=== PATIENT | male | born 1985 | race Caucasian/White ===

== ENCOUNTER 2017-06-17 21:07 | Inpatient (IN) | payer SELFPAY ==
[~2017-06-17] VITALS: Ht 177.8 cm; Wt 106.4 kg
[2017-06-17] MEDS ORDERED: LORazepam 2 MG/ML VIAL IVP ONE (21:15)
[2017-06-17] MEDS ORDERED: SODIUM CHLORIDE 0.9% 1,000 ML IV ONE ×2 (21:15→22:45)
[2017-06-17] MEDS ORDERED: PERTUSS(ACELL),DIPH,TET VAC/PF 0.5 ML VIAL IM ONE (21:30)
[2017-06-17 21:45] LABS: HEMOGLOBIN 15.6 g/dL (13.5-17.5); MEAN CORPUSCULAR HEMOGLOBIN 29.4 pg (26.0-34.0); MEAN CORPUSCULAR HGB CONC 33.1 G/dL (31.0-37.0); MEAN CORPUSCULAR VOLUME 89 fL (80-100); PLATELET COUNT (AUTO) 492 K/uL (150-450); RED BLOOD CELL COUNT(AUTO) 5.29 MIL/uL (4.50-5.90)
[2017-06-17 22:16] LABS: SALICYLATE 2.2 mg/dL (2.8-20.0)
[2017-06-17 22:20] LABS: BAND NEUTROPHILS % (MANUAL) 4 % (0-5); BASOPHILS % (MANUAL) 1 % (0-2); LYMPHOCYTES % (MANUAL) 28 % (22-44); MONOCYTES % (MANUAL) 7 % (2-9); SEGMENTED NEUTROPHILS % 60 % (40-70)
[2017-06-17 22:32] LABS: ALANINE AMINOTRANSFERASE 42 U/L (12-78); ALBUMIN 4.8 g/dL (3.4-5.0); ALKALINE PHOSPHATASE 92 U/L (46-116); ANION GAP 25 mmol/L (8-16); ASPARTATE AMINOTRANSFERASE 41 U/L (15-37); BILIRUBIN,TOTAL 0.3 mg/dL (0.1-1.0); CALCIUM, TOTAL 9.5 mg/dL (8.8-10.5); CARBON DIOXIDE 16 mmol/L (22-29); CHLORIDE 106 mmol/L (98-107); CREATINE KINASE MB 3.4 ng/mL (0-5); CREATINE KINASE, TOTAL 543 U/L (39-308); CREATININE 2.05 mg/dL (0.60-1.30); GLOMERULAR FILTR. RATE CALC 28 mL/min (>60); POTASSIUM 4.9 mmol/L (3.5-5.1); SODIUM SERUM 147 mmol/L (136-145); UREA NITROGEN, BLOOD 14 mg/dL (7-18)
[2017-06-17 22:35] LABS: GLUCOSE,RANDOM 48 mg/dL (70-110)
[2017-06-17 22:36] LABS: ACETAMINOPHEN < 2 mcg/mL (10-30)
[2017-06-17] MEDS ORDERED: DEXTROSE 50%-WATER 25 GM/50 ML SYRINGE IVP ONE (22:45)
[2017-06-17] MEDS ORDERED: CefTRIAXone SODIUM 1 GM in DEXTROSE 5%-WATER 10 ML IV ONE ×4 (23:00)
[2017-06-17] MEDS ORDERED: MIDAZOLAM HCL 2 MG/2 ML VIAL IVP ONE (23:00)
[2017-06-17 23:12] LABS: GLUCOSE,POINT OF CARE 196 MG/DL (70-110)
[2017-06-18] MEDS ORDERED: MIDAZOLAM HCL 2 MG/2 ML VIAL IVP ONE
[2017-06-18 00:30] LABS: LACTIC ACID 7.7 mmol/L (0.4-2.0)
[2017-06-18] MEDS ORDERED: VANCOMYCIN HCL 1 GM/D5% WATER 200 ML IV ONE (00:30)
[2017-06-18 00:37] LABS: GLUCOSE,POINT OF CARE 80 MG/DL (70-110)
[2017-06-18] MEDS ORDERED: ONDANSETRON HCL 4 MG/2 ML VIAL IVP PRN ×2 (00:45→08:45)
[2017-06-18] MEDS ORDERED: 0.9% SODIUM CHLORIDE 10 ML SYRINGE IVP PRN (00:45)
[2017-06-18] MEDS ORDERED: ACETAMINOPHEN 325 MG TABLET PO PRN ×2 (00:45→08:45)
[2017-06-18 01:15] LABS: APPEARANCE,URINE CLOUDY (CLEAR); BILIRUBIN,URINE NEGATIVE (NEGATIVE); GLUCOSE, URINE (UA) NEGATIVE (NEGATIVE); KETONES,URINE TRACE mg/dL (NEGATIVE); LEUKOCYTE ESTERASE ,URINE NEGATIVE (NEGATIVE); NITRATE,URINE NEGATIVE (NEGATIVE); OCCULT BLOOD,URINE LARGE (NEGATIVE); PH,URINE 5.5 (5.0-8.0); PROTEIN,URINE SEE CONFIRM (NEGATIVE); UROBILINOGEN,URINE 0.2 mg/dL (<=1.0)
[2017-06-18] MEDS ORDERED: LORazepam 2 MG/ML VIAL IVP ONE (01:15)
[2017-06-18 01:20] LABS: AMPHET/METH SCREEN,URINE POSITIVE (NEGATIVE); BARBITURATE SCREEN, URINE NEGATIVE (NEGATIVE); BENZODIAZEPINES SCREEN,URINE POSITIVE (NEGATIVE); CANNABINOID SCREEN,URINE POSITIVE (NEGATIVE); COCAINE SCREEN,URINE NEGATIVE (NEGATIVE); METHADONE SCREEN, URINE NEGATIVE (NEGATIVE); OPIATE SCREEN,URINE NEGATIVE (NEGATIVE)
[2017-06-18 01:23] LABS: PHENCYCLIDINE SCREEN,URINE NEGATIVE (NEGATIVE)
[2017-06-18 01:25] LABS: SULFOSALICYLIC ACID,URINE 4+ (Negative)
[2017-06-18 01:28] LABS: WBC,URINE 0-2 /HPF (0-5)
[2017-06-18 01:29] LABS: BACTERIA,URINE Moderate /HPF (None Seen)
[2017-06-18 01:30] LABS: AMORPHOUS SEDIMENT,UR Many /LPF (None Seen); COARSE GRANULAR CASTS,URINE 0-2 /LPF (None Seen); SQUAMOUS EPITHELIAL CELL,UR Rare /LPF (None Seen)
[2017-06-18] MEDS ORDERED: HALOPERIDOL LACTATE 5 MG/ML VIAL IM ONE (01:45)
[2017-06-18] MEDS ORDERED: DiphenhydrAMINE HCL 50 MG/ML VIAL IM ONE (01:45)
[2017-06-18] MEDS ORDERED: DIAZEPAM 5 MG/ML 2 ML SYRINGE IVP ONE (01:45)
[2017-06-18] MEDS ORDERED: LORazepam 2 MG/ML VIAL IM ONE (01:45)
[2017-06-18 02:02] LABS: GLUCOSE,POINT OF CARE 68 MG/DL (70-110)
[2017-06-18] MEDS ORDERED: ASPIRIN 325 MG TABLET PO ONE (04:45)
[2017-06-18] MEDS ORDERED: ALBUTEROL SULFATE 2.5 MG/0.5 ML NEB SOLUTION NEB PRN (08:45)
[2017-06-18] MEDS ORDERED: ZOLPIDEM TARTRATE 5 MG TABLET PO PRN (08:45)
[2017-06-18] MEDS ORDERED: IPRATROPIUM BROMIDE 0.5 MG/2.5 ML NEB SOLUTION NEB PRN (08:45)
[2017-06-18] MEDS ORDERED: MAGNESIUM HYDROXIDE SUSPENSION 30 ML UDCUP PO PRN (08:45)
[2017-06-18] MEDS ORDERED: BISACODYL 10 MG RECTAL RECTAL SUPPOSITORY PR PRN (08:45)
[2017-06-18 08:58] VITALS: BP 125/60
[2017-06-18 09:00] LABS: BASOPHILS % (AUTO) 0.1 % (0.0-2.0); EOSINOPHILS % (AUTO) 0 % (1.0-6.0); HEMATOCRIT 43.2 % (41-53); HEMOGLOBIN 14.5 g/dL (13.5-17.5); LYMPHOCYTES # (AUTO) 0.8 K/uL (1.0-4.8); LYMPHOCYTES % (AUTO) 3.5 % (22.0-44.0); MEAN CORPUSCULAR HEMOGLOBIN 29.3 pg (26.0-34.0); MEAN CORPUSCULAR HGB CONC 33.7 G/dL (31.0-37.0); MEAN CORPUSCULAR VOLUME 87 fL (80-100); MONOCYTES # (AUTO) 2.4 K/uL (0.1-1.0); MONOCYTES % (AUTO) 10.1 % (2.0-9.0); PLATELET COUNT (AUTO) 348 K/uL (150-450); RED BLOOD CELL COUNT(AUTO) 4.97 MIL/uL (4.50-5.90); RED CELL DISTRIBUTION WIDTH 12.8 % (11.5-14.5)
[2017-06-18] MEDS: DOCUSATE SODIUM 100 MG CAPSULE PO SCH ×2 (09:00→20:28)
[2017-06-18 09:02] LABS: CALCIUM, TOTAL 8.4 mg/dL (8.8-10.5); CREATININE 1.96 mg/dL (0.60-1.30); NEUTROPHILS % (AUTO) 86.3 % (40.0-70.0); POTASSIUM 4.5 mmol/L (3.5-5.1)
[2017-06-18 09:17] LABS: ALBUMIN 4.3 g/dL (3.4-5.0); BILIRUBIN,TOTAL 0.7 mg/dL (0.1-1.0); TOTAL PROTEIN, SERUM 7.4 g/dL (6.4-8.2)
[2017-06-18] MEDS: PANTOPRAZOLE SODIUM 40 MG DR TABLET PO SCH (09:19)
[2017-06-18 09:43] LABS: FREE T4 (FREE THYROXINE) 1.24 ng/dL (0.76-1.46); THYROID STIMULATING HORMONE 0.56 uIU/mL (0.36-3.74)
[2017-06-18 10:23] LABS: CKMB RELATIVE INDEX 0.8 % (0.0-4.0); CREATINE KINASE MB 61.1 ng/mL (0-5)
[2017-06-18 11:46] VITALS: BP 129/62
[2017-06-18 11:59] VITALS: BP 124/61
[2017-06-18] MEDS: SODIUM CHLORIDE 0.9% 1,000 ML IV SCH ×2 (16:01→23:45)
[2017-06-18 16:04] VITALS: BP 121/62
[2017-06-18] MEDS: OxyCODONE HCL/ACETAMINOPHEN 5-325 MG TABLET PO PRN (20:28)
[2017-06-19 00:07] VITALS: BP 110/52
[2017-06-19 05:24] VITALS: BP 109/68
[2017-06-19 06:37] LABS: EOSINOPHILS % (AUTO) 2.6 % (1.0-6.0); HEMATOCRIT 39.2 % (41-53); HEMOGLOBIN 13.5 g/dL (13.5-17.5); LYMPHOCYTES % (AUTO) 11.8 % (22.0-44.0); MEAN CORPUSCULAR HEMOGLOBIN 30.5 pg (26.0-34.0); MEAN CORPUSCULAR HGB CONC 34.4 G/dL (31.0-37.0); MEAN CORPUSCULAR VOLUME 89 fL (80-100); MONOCYTES # (AUTO) 0.6 K/uL (0.1-1.0); MONOCYTES % (AUTO) 7.5 % (2.0-9.0); NEUTROPHILS # (AUTO) 6.4 K/uL (1.8-7.7); NEUTROPHILS % (AUTO) 77.1 % (40.0-70.0); PLATELET COUNT (AUTO) 235 K/uL (150-450); RED BLOOD CELL COUNT(AUTO) 4.43 MIL/uL (4.50-5.90); RED CELL DISTRIBUTION WIDTH 13.3 % (11.5-14.5)
[2017-06-19 07:00] LABS: ALBUMIN 3.2 g/dL (3.4-5.0); BILIRUBIN,TOTAL 0.8 mg/dL (0.1-1.0); CALCIUM, TOTAL 7.7 mg/dL (8.8-10.5); CREATININE 1.43 mg/dL (0.60-1.30); POTASSIUM 3.4 mmol/L (3.5-5.1); TOTAL PROTEIN, SERUM 6.2 g/dL (6.4-8.2)
[2017-06-19 07:11] VITALS: BP 131/69
[2017-06-19 07:46] LABS: CKMB RELATIVE INDEX 0.4 % (0.0-4.0); CREATINE KINASE MB 65.1 ng/mL (0-5)
[2017-06-19] MEDS: DOCUSATE SODIUM 100 MG CAPSULE PO SCH (08:32)
[2017-06-19] MEDS: OxyCODONE HCL/ACETAMINOPHEN 5-325 MG TABLET PO PRN (08:32)
[2017-06-19] MEDS: PANTOPRAZOLE SODIUM 40 MG DR TABLET PO SCH (08:32)
[2017-06-19] MEDS: SODIUM CHLORIDE 0.9% 1,000 ML IV SCH (09:26)
[2017-06-19 11:23] VITALS: BP 114/50
== END 2017-06-19 15:15 | disposition left against medical advice (07) | DRG 871 ==
LOC: EMS 21:08 → EDBD 21:08 → 5S 06-18 06:54
PROVIDERS: ADMIT Hospitalist; ATTEND Hospitalist
DX: A41.9 Sepsis, unspecified organism (principal); G92 Toxic encephalopathy; K72.00 Acute and subacute hepatic failure without coma; R57.9 Shock, unspecified; E87.2 Acidosis; I24.8 Other forms of acute ischemic heart disease; M62.82 Rhabdomyolysis; N17.9 Acute kidney failure, unspecified; N39.0 Urinary tract infection, site not specified; F10.10 Alcohol abuse, uncomplicated; F15.90 Other stimulant use, unspecified, uncomplicated; Z78.1 Physical restraint status; Z87.891 Personal history of nicotine dependence; Z91.19 Patient's noncompliance with other medical treatment and regimen; F19.10 Other psychoactive substance abuse, uncomplicated; Z53.21 Procedure and treatment not carried out due to patient leaving prior to being seen by health care provider
CPT/HCPCS: 70450; 82962; 83605; 84439; 84443; 86850; 86900; 86901; 87040; 87086; 90471; 90715; 93005; 93306; 96361; 96365; 96366; 96372; 96375; 96376; 99291; 99292; G0480; G0481; J0696; J1200; J1630; J2060; J2250; J3370; J7030; J7060

== ENCOUNTER 2017-11-01 23:10 | Emergency (ER) | payer SELFPAY ==
[~2017-11-01] VITALS: Ht 185.4 cm; Wt 104.5 kg
[2017-11-01] MEDS ORDERED: SODIUM CHLORIDE 0.9% 1,000 ML IV ONE (23:30)
[2017-11-01] MEDS ORDERED: LORazepam 2 MG/ML VIAL IM ONE (23:30)
[2017-11-01 23:39] LABS: BASOPHILS % (AUTO) 0.2 % (0.0-2.0); EOSINOPHILS % (AUTO) 0.1 % (1.0-6.0); HEMATOCRIT 47.8 % (41-53); HEMOGLOBIN 15.8 g/dL (13.5-17.5); LYMPHOCYTES # (AUTO) 1.2 K/uL (1.0-4.8); LYMPHOCYTES % (AUTO) 4.4 % (22.0-44.0); MEAN CORPUSCULAR HEMOGLOBIN 28.5 pg (26.0-34.0); MEAN CORPUSCULAR HGB CONC 33.1 G/dL (31.0-37.0); MEAN CORPUSCULAR VOLUME 86 fL (80-100); MONOCYTES # (AUTO) 2.1 K/uL (0.1-1.0); MONOCYTES % (AUTO) 7.8 % (2.0-9.0); NEUTROPHILS # (AUTO) 23.6 K/uL (1.8-7.7); PLATELET COUNT (AUTO) 464 K/uL (150-450); RED BLOOD CELL COUNT(AUTO) 5.53 MIL/uL (4.50-5.90); RED CELL DISTRIBUTION WIDTH 13.3 % (11.5-14.5)
[2017-11-01 23:49] LABS: ANION GAP 22 mmol/L (8-16); CARBON DIOXIDE 18 mmol/L (22-29); CHLORIDE 103 mmol/L (98-107); CREATININE 2.52 mg/dL (0.60-1.30); GLOMERULAR FILTR. RATE CALC 30 mL/min (>60); GLUCOSE,RANDOM 179 mg/dL (70-110); NEUTROPHILS % (AUTO) 87.5 % (40.0-70.0); POTASSIUM 3.7 mmol/L (3.5-5.1); SODIUM SERUM 143 mmol/L (136-145); UREA NITROGEN, BLOOD 16 mg/dL (7-18)
[2017-11-01 23:55] LABS: ALANINE AMINOTRANSFERASE 67 U/L (12-78); ALKALINE PHOSPHATASE 95 U/L (46-116); ASPARTATE AMINOTRANSFERASE 80 U/L (15-37); BILIRUBIN,TOTAL 0.6 mg/dL (0.1-1.0); TOTAL PROTEIN, SERUM 9.3 g/dL (6.4-8.2)
[2017-11-01 23:57] LABS: SALICYLATE < 2.8 mg/dL (2.8-20.0)
[2017-11-02 00:19] LABS: ACETAMINOPHEN < 2 mcg/mL (10-30)
[2017-11-02 01:57] LABS: AMPHET/METH SCREEN,URINE POSITIVE (NEGATIVE); BARBITURATE SCREEN, URINE NEGATIVE (NEGATIVE); BENZODIAZEPINES SCREEN,URINE POSITIVE (NEGATIVE); CANNABINOID SCREEN,URINE NEGATIVE (NEGATIVE); COCAINE SCREEN,URINE NEGATIVE (NEGATIVE); METHADONE SCREEN, URINE NEGATIVE (NEGATIVE); OPIATE SCREEN,URINE NEGATIVE (NEGATIVE)
[2017-11-02 01:59] LABS: PHENCYCLIDINE SCREEN,URINE NEGATIVE (NEGATIVE)
[2017-11-02] MEDS ORDERED: SODIUM CHLORIDE 0.9% 1,000 ML IV ONE ×2 (02:45→05:45)
[2017-11-02] MEDS ORDERED: HALOPERIDOL LACTATE 5 MG/ML VIAL IM ONE (02:45)
[2017-11-02] MEDS ORDERED: LORazepam 2 MG/ML VIAL IM ONE (02:45)
[2017-11-02] MEDS ORDERED: DiphenhydrAMINE HCL 50 MG/ML VIAL IM ONE (03:00)
[2017-11-02 03:32] LABS: CALCIUM, TOTAL 8.6 mg/dL (8.8-10.5); CREATININE 1.71 mg/dL (0.60-1.30); POTASSIUM 3.4 mmol/L (3.5-5.1)
[2017-11-02 03:37] LABS: ALBUMIN 4.4 g/dL (3.4-5.0); BILIRUBIN,TOTAL 0.7 mg/dL (0.1-1.0); TOTAL PROTEIN, SERUM 7.9 g/dL (6.4-8.2)
[2017-11-02 08:48] VITALS: BP 109/60
== END 2017-11-02 11:32 | disposition home or self-care (01) ==
LOC: EMS 23:10
DX: F15.10 Other stimulant abuse, uncomplicated (principal); F17.210 Nicotine dependence, cigarettes, uncomplicated; F22 Delusional disorders
CPT/HCPCS: 36415; 80053; 80307; 85025; 93005; 96372; 99285; G0480 ×2; G0481; J1200; J1630; J2060 ×2; J7030 ×2